=== PATIENT | female | born 1955 | race Caucasian/White ===

== ENCOUNTER 2018-01-14 16:05 | Inpatient (IN) ==
[2018-01-14] MEDS ORDERED: Naloxone 0.4 MG/ML INJ IVP PRN (18:40)
[2018-01-14] MEDS ORDERED: 0.9 % Sodium Chloride 1,000 ML IVC SCH (18:45)
[2018-01-14 19:11] LABS: Basophils % 0.2 %; Hematocrit 30.9 % (35.3-44.9); Hemoglobin 10.5 g/dL (11.5-15.4); Immature Granulocytes % 0.3 % (0-4); Lymphocytes # 1.6 K/mcL (0.6-4.6); Lymphocytes % 16.4 %; Mean Corpuscular Hemoglobin 31.3 pg (28.0-33.3); Mean Corpuscular Volume 92.2 fL (83.0-100.0); Mean Platelet Volume 9.6 fL (9.4-12.4); Monocytes # 0.3 K/mcL (0.0-1.3); Monocytes % 2.6 %; Platelet Count 226 K/mcL (140-400); Red Blood Count 3.35 M/mcL (3.82-4.97); Red Cell Distribution Width 12.2 % (11.5-14.5); Segmented Neutrophils % 80.5 %
[2018-01-14 19:18] LABS: INR 1.1; Prothrombin Time 12.3 Seconds (9.4-12.1)
[2018-01-14 19:20] LABS: Activated Partial Thrombo Time 29.3 Seconds (26.0-36.0)
[2018-01-14] MEDS: Pantoprazole 40 MG in 0.9 % Sodium Chloride Mini Bag 100 ML IVC SCH ×2 (19:25→21:55)
[2018-01-14 19:30] LABS: Alanine Aminotransferase 16 Units/L (7-52); Albumin 4.4 g/dL (3.5-5.7); Albumin/Globulin Ratio 2.4 (1.1-2.2); Alkaline Phosphatase 49 Units/L (34-104); Aspartate Amino Transferase 14 Units/L (13-39); BUN/Creatinine Ratio 57 (6-26); Bilirubin,Total 0.6 mg/dL (0.3-1.0); Blood Urea Nitrogen 45 mg/dL (8-23); Calcium 9.3 mg/dL (8.6-10.3); Carbon Dioxide 23 mEq/L (23-29); Chloride 106 mEq/L (98-107); Globulin 1.8 g/dL (2.4-3.5); Glucose 133 mg/dL (70-105); Osmolality,Calculated 297 (280-300); Potassium 4.4 mEq/L (3.5-5.1); Sodium 137 mEq/L (136-145); Total Protein 6.2 g/dL (6.4-8.9); eGFR For Non-African Americans > 60 (> 60)
[2018-01-14 21:34] LABS: Hematocrit 28.1 % (35.3-44.9); Hemoglobin 9.7 g/dL (11.5-15.4)
--- NOTE | 2018-01-14 22:05 | Internal Med History&Physical ---
Date of Encounter: 01/14/18 Time of Encounter: 20:30 Internal Medicine - H&P: HPI Chief complaint: coffee ground emesis; melena Admitted From: Hospital to Hospital Transfer Plans for Post Hospital Care: Home History of present illness: Ms. Mejia is a 62 year old female who presents in transfer from [facility] ER in [place]. She presented there with complaints of coffee-ground emesis and melena, both of which started early this morning. She had several bouts of emesis and melena since this morning. She had an NG tube placed there with significant amount of coffee-ground material. Since then, she has had minimal output via the NG tube. She was noted to be anemic and needed further workup and care and not available at [facility]. Therefore, she was transferred here to [facility]. Upon arrival to [place], I saw the patient on the floor shortly after her arrival. Patient and her confirmed above history. Of note, she had a recent left heart catheterization roughly 3 weeks ago. She was noted to have single- vessel coronary artery disease. However, she did not require any angioplasty or stent placement. She has been on aspirin and Plavix since then. She does not use or abuse any other NSAIDs. She takes acetaminophen on a daily basis. However, she does not use ibuprofen, Aleve, Naprosyn, or other NSAIDs. She does not drink excessive caffeine other than soda pop, roughly 4 cans per day. She does not smoke or abuse alcohol. She has never had GI bleeding or ulcer disease before. She has never had colonoscopy or upper endoscopy. I reviewed her old records and old labs. Of note, her hemoglobin on 12/21/2017 was 13.8. Hemoglobin upon arrival here was 10.5. Repeat hemoglobin now at 9 PM is 9.7. Part of her hemoglobin drop, I believe, is dilutional from IVF. She has therefore had roughly 4 g hemoglobin drop since early December. We are going to hold her aspirin and Plavix, keep her on protonic drip, and proceed with endoscopy -- likely tomorrow. I called and spoke with Dr. Bell, and he is aware of the patient. He intends to proceed with endoscopy tomorrow, sooner if necessary. I asked her nurse to place a second IV, and we will monitor hemodynamics closely. Additionally, we will monitor hemoglobin and transfuse as necessary. I explained the plan to patient and her at length, and they are in agreement and appreciation of the plan. Past Med Surg Social Fam HX - Past Medical History Attestation: Yes The following information was validated with the patient. Source: patient, old records reviewed, obtained from family, other ([facility] records) Medical history: coronary artery disease (50% stenosis mid LAD) Psychiatric history: no psych history - Past Surgical History Additional surgical history: CATARACTS FREMOVED BILAT, CHILD DELIVERIES. TUBAL LIGATION - Social History Smoking Status: Never smoker Smokeless Tobacco Status: No Alcohol use: none Drug use: none Current living situation: Home, With Family Activity Level: Independent ambulation Recent Out of Country Travel Within the Last 8 Weeks: No - Family History Mother Living Status: Hx Family GI Disorders: No Father Living Status: Hx Family GI Disorders: No Internal Medicine - H&P: Meds Aspirin [Lo-Dose Aspirin EC] 81 mg PO DAILY 12/23/17 [History] Cyanocobalamin (Vitamin B-12) [Vitamin B-12] 500 mcg PO DAILY 12/23/17 [History] Multivitamin/Iron/Folic Acid [Centrum Complete Multivit Tab] 1 each PO 12/23/17 [History] Vit A/C/E AC/Znox/Cupric Oxide [Eye Vitamin-Minerals Tablet] 1 each PO BID 12/23/17 [History] Allergy/AdvReac Type Severity Reaction Status Date / Time prednisone Allergy Rash Verified 12/23/17 11:50 - Constitutional Constitutional: no chills, no fever(s), no night sweats - EENT Eyes: no blurry vision, no change in vision Ears: no ear pain, no tinnitus Nose, mouth and throat: no nasal congestion, no sinus pressure, no sore throat - Cardiovascular Cardiovascular ROS IM: no chest pain, no dyspnea, no dyspnea on exertion, no orthopnea, no palpitations, no syncope - Respiratory Respiratory: no cough, no hemoptysis, no chest congestion, no excessive phlegm production, no change in phlegm color - Gastrointestinal Gastrointestinal: coffee ground emesis, melena, nausea, no abdominal pain, no diarrhea, no heartburn, no hematemesis, no hematochezia - Genitourinary Genitourinary: no dysuria, no flank pain, no hematuria - Musculoskeletal Musculoskeletal ROS IM: arthralgias, no back pain - Integumentary Integumentary IM: no rash, no jaundice - Neurological Neurological ROS: dizziness, no focal weakness, no frequent falls, no headache(s), no weakness - Psychiatric Psychiatric: no anxiety, no depression - Endocrine Endocrine IM: no cold intolerance, no heat intolerance, no polydipsia, no polyuria - Hematologic/Lymphatic Hematologic/Lymphatic: no easy bruising - Allergic/Immunologic Allergic/Immunologic: no wheezing, no GI upset with certain foods - Constitutional Vitals: Temp Pulse Resp BP Pulse Ox 98.0 F 96 16 108/63 99 01/14/18 19:42 01/14/18 19:42 01/14/18 19:42 01/14/18 19:42 01/14/18 19:42 General appearance: Present: cooperative, A&O X 3, pleasant, no acute distress, answers questions appropriately Exam: NG tube in place - Head Head exam: Present: atraumatic, normal inspection - Eye Eye exam: Present: EOMI, PERRL. Absent: scleral icterus Pupils: Present: normal accommodation - ENT ENT exam: Present: mucous membranes dry, normal exam, normal oropharynx - Neck Neck exam general surgery: Present: full ROM, supple. Absent: tenderness, nuchal rigidity, thyromegaly - Respiratory Respiratory exam: Present: CTAB. Absent: chest wall tenderness, rales, respiratory distress, rhonchi, wheezes - Cardiovascular Cardiovascular exam: Present: RRR, +S1, +S2. Absent: diastolic murmur, systolic murmur - GI/Abdominal GI/Abdominal exam: Present: normal bowel sounds, soft. Absent: guarding, hepatomegaly, mass, rebound, splenomegaly, tenderness - Extremities Exam Extremities exam: Present: full ROM, normal capillary refill, warm, radial pulses palpable and symmetrical. Absent: calf tenderness, joint swelling, pedal edema, tenderness - Back Exam Back exam: Present: normal inspection. Absent: CVA tenderness (L), CVA tenderness (R) - Neurological Exam Neurological exam: Present: alert, CN II-XII intact, oriented X3, no focal deficits, strengths equal and symetr throughout - Psychiatric Psychiatric exam: Present: normal affect, normal mood - Skin Skin exam: Present: dry, intact, warm. Absent: petechiae, rash Internal Med - H&P Results - Labs CBC & Chem 7: 01/14/18 21:08 01/14/18 19:00 Labs: Short CBC 01/14/18 01/14/18 Range/Units 19:00 21:08 WBC 9.9 (4.3-11.1) K/mcL Hgb 10.5 L 9.7 L (11.5-15.4) g/dL Hct 30.9 L 28.1 L (35.3-44.9) % Plt Count 226 (140-400) K/mcL Neutrophils # 8.0 (1.6-8.9) K/mcL BMP 01/14/18 19:00 Sodium 137 Potassium 4.4 Chloride 106 Carbon Dioxide 23 BUN 45 H Creatinine 0.79 Glucose 133 H Calcium 9.3 Liver Function 01/14/18 Range/Units 19:00 Total Bilirubin 0.6 (0.3-1.0) mg/dL AST 14 (13-39) Units/L ALT 16 (7-52) Units/L Alkaline Phosphatase 49 (34-104) Units/L Albumin 4.4 (3.5-5.7) g/dL Pertinent Labs from [facility]: Hemoglobin 10.7 Hematocrit 31.3 Platelets 229 PT 12.7 INR 1.1 PTT 28.2 - Assessment and plan (1) Acute blood loss anemia Current Visit: Yes Status: Acute Assessment and plan: 1. Will trend hemoglobin Q6H and transfuse as necessary. 2. Continue MIV fluids. 3. I requested 2nd IV placement per RN. 4. Monitor on telemetry and hemodynamically. 5. If necessary, will move to ICU for closer monitoring. However, presently, she appears stable on step-down unit. Discussed with patient, family, and RN. (2) UGI bleed Current Visit: Yes Status: Acute Assessment and plan: 1. Will keep patient on Protonix drip. 2. Remove NG tube as there is very little output now and also to prevent further gastric irritation. 3. NPO after midnight for EGD likely tomorrow. 4. Dr. Bell consulted and case discussed with him. 5. Hold ASA and Plavix for now. (3) Nonobstructive atherosclerosis of coronary artery Current Visit: Yes Status: Chronic Assessment and plan: 1. Patient with no signs or symptoms of angina. 2. LHC revealed 50% non-obstructive mid LAD lesion. 3. Primary treatment would be PRBC transfusion in the setting of GI bleed and angina. No symptoms presently. Will monitor closely. (4) DVT prophylaxis Current Visit: Yes Status: Acute Assessment and plan: 1 EPCD's.
[2018-01-15] MEDS: Pantoprazole 40 MG in 0.9 % Sodium Chloride Mini Bag 100 ML IVC SCH ×2 (02:07→07:34)
[2018-01-15] MEDS ORDERED: 0.9 % Sodium Chloride 1,000 ML IVC SCH (02:15)
[2018-01-15 04:33] LABS: Basophils % 0.3 %; Eosinophils # 0.1 K/mcL (0.0-0.6); Eosinophils % 0.7 %; Hematocrit 25.1 % (35.3-44.9); Hemoglobin 8.6 g/dL (11.5-15.4); Immature Granulocytes % 0.2 % (0-4); Lymphocytes # 2.9 K/mcL (0.6-4.6); Lymphocytes % 32.5 %; Mean Corpuscular HGB Conc 34.3 g/dL (31.6-35.5); Mean Corpuscular Hemoglobin 31.9 pg (28.0-33.3); Mean Platelet Volume 9.9 fL (9.4-12.4); Monocytes # 0.6 K/mcL (0.0-1.3); Monocytes % 7.1 %; Neutrophils # 5.3 K/mcL (1.6-8.9); Platelet Count 188 K/mcL (140-400); Red Cell Distribution Width 12.5 % (11.5-14.5); Segmented Neutrophils % 59.2 %
[2018-01-15 04:50] LABS: BUN/Creatinine Ratio 39 (6-26); Blood Urea Nitrogen 34 mg/dL (8-23); Calcium 8.5 mg/dL (8.6-10.3); Carbon Dioxide 25 mEq/L (23-29); Chloride 110 mEq/L (98-107); Glucose 90 mg/dL (70-105); Osmolality,Calculated 297 (280-300); Potassium 4.1 mEq/L (3.5-5.1); Sodium 140 mEq/L (136-145); eGFR For Non-African Americans > 60 (> 60)
--- NOTE | 2018-01-15 07:42 | General Surgery Consult Note ---
Date of Encounter: 01/15/18 Time of Encounter: 07:30 Assessment and Plan (1) UGI bleed Current Visit: Yes Status: Acute The patient has a personal history of hematemesis. We will plan to stop her aspirin and Plavix as well as perform urgent upper endoscopy to try and identify a bleeding source. History of Present Illness Consult date: 01/15/18 Reason for consult: other (Hematemesis) History of present illness: The patient is a 62-year-old female who recently underwent heart catheterization. She had noncritical disease and coronary artery stents were placed. She was placed on Plavix and aspirin. She had vomiting that demonstrated hematemesis. There was a drop in her hemoglobin and she now presents for urgent upper endoscopy to evaluate the esophagus stomach and duodenum for gastrointestinal bleeding source. I answered the patient's questions and she will be kept nothing by mouth for upper endoscopy Past Med Surg Social Fam HX - Past Medical History Medical history: coronary artery disease (50% stenosis mid LAD) Psychiatric history: no psych history - Past Surgical History Additional surgical history: CATARACTS FREMOVED BILAT, CHILD DELIVERIES. TUBAL LIGATION - Social History Smoking Status: Never smoker Smokeless Tobacco Status: No Alcohol use: none Drug use: none - Family History Mother Living Status: Hx Family GI Disorders: No Father Living Status: Hx Family GI Disorders: No Medications and Allergies Aspirin [Lo-Dose Aspirin EC] 81 mg PO DAILY 12/23/17 [History] Cyanocobalamin (Vitamin B-12) [Vitamin B-12] 500 mcg PO DAILY 12/23/17 [History] Multivitamin/Iron/Folic Acid [Centrum Complete Multivit Tab] 1 each PO 12/23/17 [History] Vit A/C/E AC/Znox/Cupric Oxide [Eye Vitamin-Minerals Tablet] 1 each PO BID 12/23/17 [History] Allergy/AdvReac Type Severity Reaction Status Date / Time prednisone Allergy Rash Verified 12/23/17 11:50 Review of Systems All systems PM: The remainder of the systems were reviewed and are negative General Surgery Exam Initial Vital Signs Temp Pulse Resp BP Pulse Ox 98.0 F 96 16 108/63 99 01/14/18 19:42 01/14/18 19:42 01/14/18 19:42 01/14/18 19:42 11/03/18 19:42 - General physical appearance well developed, well nourished, no distress - Respiratory normal expansion, normal respiratory effort, clear to percussion, clear to auscultation - Cardiovascular Cardiovascular exam: Present: RRR, no murmurs/rubs/gallops - Abdomen Abdomen general surgery: Present: bowel sounds present, soft, non tender - Neurologic Present: CN 2-12 grossly intact, normal coordination, normal sensation - Psychiatric Psychiatric general surgery: Present: appropriate, oriented to person, oriented to place, oriented to time, speech is normal, memory intact Exam Initial Vital Signs Temp Pulse Resp BP Pulse Ox 98.0 F 96 16 108/63 99 01/14/18 19:42 01/14/18 19:42 01/14/18 19:42 01/14/18 19:42 01/14/18 19:42 - General physical appearance well developed, well nourished, no distress, moderate distress, severe distress - Respiratory normal expansion, normal respiratory effort, clear to percussion, clear to auscultation - Abdomen Abdomen: non tender, bowel sounds (present), surgical scars (none), masses (none) Hernia: none - Neurologic CN 2-12 grossly intact, normal coordination, normal sensation - Psychiatric oriented to time, oriented to person, oriented to place, speech is normal, me karel intact Results - Labs 01/15/18 04:02 01/15/18 04:02 Abnormal lab results RBC 2.70 M/mcL (3.82-4.97) L 01/15/18 04:02 Hgb 8.6 g/dL (11.5-15.4) L 01/15/18 04:02 Hct 25.1 % (35.3-44.9) L 01/15/18 04:02 PT 12.3 Seconds (9.4-12.1) H 01/14/18 19:00 Chloride 110 mEq/L (98-107) H 01/15/18 04:02 BUN 34 mg/dL (8-23) H 01/15/18 04:02 BUN/Creatinine Ratio 39 (6-26) H 01/15/18 04:02 Calcium 8.5 mg/dL (8.6-10.3) L 01/15/18 04:02 Serum Total Protein 6.2 g/dL (6.4-8.9) L 01/14/18 19:00 Globulin 1.8 g/dL (2.4-3.5) L 01/14/18 19:00 Albumin/Globulin Ratio 2.4 (1.1-2.2) H 01/14/18 19:00 Diabetes panel 01/14/18 01/15/18 Range/Units 19:00 04:02 Sodium 137 140 (136-145) mEq/L Potassium 4.4 4.1 (3.5-5.1) mEq/L Chloride 106 110 H (98-107) mEq/L Carbon Dioxide 23 25 (23-29) mEq/L BUN 45 H 34 H (8-23) mg/dL Creatinine 0.79 0.87 (0.60-1.20) mg/dL Glucose 133 H 90 (70-105) mg/dL Calcium 9.3 8.5 L (8.6-10.3) mg/dL AST 14 (13-39) Units/L ALT 16 (7-52) Units/L Alkaline Phosphatase 49 (34-104) Units/L Albumin 4.4 (3.5-5.7) g/dL Calcium panel 01/14/18 01/15/18 Range/Units 19:00 04:02 Calcium 9.3 8.5 L (8.6-10.3) mg/dL Albumin 4.4 (3.5-5.7) g/dL Pituitary panel 01/14/18 01/15/18 Range/Units 19:00 04:02 Sodium 137 140 (136-145) mEq/L Potassium 4.4 4.1 (3.5-5.1) mEq/L Chloride 106 110 H (98-107) mEq/L Carbon Dioxide 23 25 (23-29) mEq/L BUN 45 H 34 H (8-23) mg/dL Creatinine 0.79 0.87 (0.60-1.20) mg/dL Glucose 133 H 90 (70-105) mg/dL Calcium 9.3 8.5 L (8.6-10.3) mg/dL Adrenal panel 01/14/18 01/15/18 Range/Units 19:00 04:02 Sodium 137 140 (136-145) mEq/L Potassium 4.4 4.1 (3.5-5.1) mEq/L Chloride 106 110 H (98-107) mEq/L Carbon Dioxide 23 25 (23-29) mEq/L BUN 45 H 34 H (8-23) mg/dL Creatinine 0.79 0.87 (0.60-1.20) mg/dL Glucose 133 H 90 (70-105) mg/dL Calcium 9.3 8.5 L (8.6-10.3) mg/dL Total Bilirubin 0.6 (0.3-1.0) mg/dL AST 14 (13-39) Units/L ALT 16 (7-52) Units/L Alkaline Phosphatase 49 (34-104) Units/L Albumin 4.4 (3.5-5.7) g/dL All other labs normal. - Imaging CT scan - abdomen: image reviewed Consult Discharge Plan - Plan Referrals: Jackeline Edwards CNP [Primary Care Provider] -
[2018-01-15 08:18] LABS: Basophils % 0.3 %; Eosinophils # 0.1 K/mcL (0.0-0.6); Eosinophils % 0.8 %; Hemoglobin 8.1 g/dL (11.5-15.4); Immature Granulocytes % 0.1 % (0-4); Lymphocytes # 2.3 K/mcL (0.6-4.6); Lymphocytes % 31.4 %; Mean Corpuscular HGB Conc 33.8 g/dL (31.6-35.5); Mean Corpuscular Hemoglobin 31.2 pg (28.0-33.3); Mean Corpuscular Volume 92.3 fL (83.0-100.0); Mean Platelet Volume 10.1 fL (9.4-12.4); Monocytes # 0.4 K/mcL (0.0-1.3); Monocytes % 5.4 %; Neutrophils # 4.5 K/mcL (1.6-8.9); Platelet Count 181 K/mcL (140-400); Red Cell Distribution Width 12.7 % (11.5-14.5)
[2018-01-15] MEDS ORDERED: D5% in Water 1,000 ML IVC PRN (08:46)
[2018-01-15] MEDS ORDERED: Dextrose Gel 15 GM/37.5 ML TUBE PO PRN ×2 (08:46)
[2018-01-15] MEDS ORDERED: *HR* Dextrose 50 % in Water (Syg) 50 ML SYRINGE IVP PRN (08:46)
[2018-01-15] MEDS ORDERED: D5% in 0.9% NACL 1,000 ML IVC SCH (09:00)
[2018-01-15] MEDS ORDERED: Propofol 500 MG/50 ML INFUS..BTL ONE (09:01)
[2018-01-15] MEDS ORDERED: Lidocaine -MPF 2% 2 ML VIAL ONE (09:02)
--- NOTE | 2018-01-15 09:06 | Anesthesia Evaluation PreOp ---
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 Any Significant HX Other Medical History: Denies Any Significant HX Anesthesia History: No Prior Anesthetic Complications : No Alcohol Use: none Drug use: none Medications and Allergies Aspirin [Lo-Dose Aspirin EC] 81 mg PO DAILY 12/23/17 [History] Cyanocobalamin (Vitamin B-12) [Vitamin B-12] 500 mcg PO DAILY 12/23/17 [History] Multivitamin/Iron/Folic Acid [Centrum Complete Multivit Tab] 1 each PO 12/23/17 [History] Vit A/C/E AC/Znox/Cupric Oxide [Eye Vitamin-Minerals Tablet] 1 each PO BID 12/23/17 [History] Allergy/AdvReac Type Severity Reaction Status Date / Time prednisone Allergy Rash Verified 12/23/17 11:50 - Meds/Allergy Pre-op Review Medications Reviewed: Yes Allergies Reviewed: Yes Beta Blockers on Current Med List: No Anesthesia Results - Labs 01/15/18 08:06 01/15/18 04:02 Laboratory Tests 01/14/18 01/15/18 01/15/18 19:00 04:02 08:06 Hgb 8.1 L Hct 24.0 L Plt Count 181 PT 12.3 H INR 1.1 APTT 29.3 Sodium 140 Potassium 4.1 BUN 34 H Creatinine 0.87 - Imaging EKG: report reviewed (SR) Additional studies: ECHO EF 40%, moderate diastolic dysfunction Anesthesia Exam Vital Signs/O2 Sat/Glucose, Most Current Temp Pulse Resp BP Pulse Ox 01/15/18 06:50 98.1 F 69 16 102/53 97 Height: 5'4 Weight: 138 lbs NPO (# of Hours): MN Pain Scale: 0 - HEENT Pupil (Motor): Pupils equal, EOMI Mallampati: II Teeth: Edentulous (no upper dentition) Oral Opening: Less than or equal to 3 - TECHNICAL INSTRUCTOR COURSE DEVELOPER LOC: Oriented TECHNICAL INSTRUCTOR COURSE DEVELOPER Motor: Normal RUE, Normal LUE, Normal RLE, Normal LLE, Normal Face TECHNICAL INSTRUCTOR COURSE DEVELOPER Sensory: Normal: RUE, LUE, RLE, LLE, Face - Cardiac Rhythm: Regular Murmur: None JVD: No Carotid Bruit: No - Pulmonary Breath Sounds: bilateral Clear Respiratory Effort: Symmetrical Anesthesia Assess/Plan ASA Score: 3 (CAD Mod Cardiomyopathy) Level of consciousness: Cooperative Anesthetic Plan: MAC Autologous Blood: No Monitoring Plan: Standard Monitors Recovery Plan: Other (Discussed MAC, agrees to proceed)
--- NOTE | 2018-01-15 09:53 | Anesthesia Evaluation Post Op ---
Date of Encounter: 01/15/18 Time of Encounter: 09:45 - Vital Signs Vital Signs: Vital Signs/O2 Sat/Glucose, Most Current Temp Pulse Resp BP Pulse Ox 01/15/18 09:15 74 18 106/61 97 01/15/18 06:50 98.1 F 69 16 102/53 97 - Lungs Lungs: Clear Ascult./Percussion - Airway Airway: Non-obstructed - Cardiovascular Regular Rate - Mental Status Mental Status: Alert & Oriented, Answers Appropriately - Pain Pain Scale: 0 - Nausea Vomiting Nausea Vomiting: Not Present - Hydration Hydration: Ice chips - Discharge PostOp Status: Transfer Patient to floor
--- NOTE | 2018-01-15 10:08 | Internal Med Progress Note ---
Hospitalist Progress Note - Encounter Date of Encounter: 01/15/18 Time of Encounter: 10:03 - Subjective Interval History: Patient seen and evaluated at bedside, she reports that she is feeling better today, denies dizziness or lightheadedness. denies chest or abdominal pain. denies nausea or vomiting episodes. - Exam Vitals: Temp Pulse Resp BP Pulse Ox 98.1 F 74 18 106/61 97 01/15/18 06:50 01/15/18 09:15 01/15/18 09:15 01/15/18 09:15 01/15/18 09:15 Exam: General: Alert and oriented x4. in no acute distress. Skin: Normal color, no rash, no lesions. HEENT: EOM, pupils equal, round and reactive. Cardiovascular: RRR, Normal S1 & S2, no rubs, murmurs or gallops. Lungs: CTA bilaterally, no wheezes or crackles. Abdomen: Soft, non-tender, no rigidity. NABS in 4 all quadrant. Extremities: No deformity, no edema or tenderness, no joint swelling or clubbing . Neurological: Normal cognition and motor skills. Rest of the physical exam is non contributory - Assessment and Plan (1) UGI bleed Current Visit: Yes Status: Acute Assessment and Plan: s/p EGD: Acute gastritis with hemorrhage. Multiple oozing duodenal ulcers Plan on Pantoprazole 40mg/IV BID NPO accu-checks Q6HRs Lispro medium dose sliding scale D5NS@75mls/hr to avoid hypoglycemia Serial CBC Q6HRs sulcrafate 1mg/PO TID will consider transfusing if Hb<7, Hct <23 or patient becomes symptomatic. Ondanseron 4mg/IV Q4HR PRN for nausea&vomiting (2) Acute blood loss anemia Current Visit: Yes Status: Acute Assessment and Plan: Plan of care as above. (3) Nonobstructive atherosclerosis of coronary artery Current Visit: Yes Status: Chronic Assessment and Plan: Aspirin and Plavix has been held due to GI bleed. DVT Prophylaxis: No chemical DVT prophylaxis due to GI bleeding Mechanical DVT prophylaxis with intermittent pneumatic compression. - Summary of Assessment and Plan Summary of Assessment and Plan: Patient to remain in the hospital to continue monitoring serial CBC due to GI bleeding. s/p EGD. - Time Spent with Patient Total time spent is greater than 50% in coordination of care (as documented) at patient's floor/unit and/or counseling patient: Greater than 35 minutes (40) Plan of Care Discussed with: patient (and the nurse.) Internal Medicine: Result - Labs CBC & Chem 7: 01/15/18 08:06 01/15/18 04:02 Labs: Short CBC 01/14/18 01/14/18 01/15/18 Range/Units 19:00 21:08 04:02 WBC 9.9 8.9 (4.3-11.1) K/mcL Hgb 10.5 L 9.7 L 8.6 L (11.5-15.4) g/dL Hct 30.9 L 28.1 L 25.1 L (35.3-44.9) % Plt Count 226 188 (140-400) K/mcL Neutrophils # 8.0 5.3 (1.6-8.9) K/mcL 01/15/18 Range/Units 08:06 WBC 7.2 (4.3-11.1) K/mcL Hgb 8.1 L (11.5-15.4) g/dL Hct 24.0 L (35.3-44.9) % Plt Count 181 (140-400) K/mcL Neutrophils # 4.5 (1.6-8.9) K/mcL BMP 01/14/18 01/15/18 19:00 04:02 Sodium 137 140 Potassium 4.4 4.1 Chloride 106 110 H Carbon Dioxide 23 25 BUN 45 H 34 H Creatinine 0.79 0.87 Glucose 133 H 90 Calcium 9.3 8.5 L Liver Function 01/14/18 Range/Units 19:00 Total Bilirubin 0.6 (0.3-1.0) mg/dL AST 14 (13-39) Units/L ALT 16 (7-52) Units/L Alkaline Phosphatase 49 (34-104) Units/L Albumin 4.4 (3.5-5.7) g/dL - ABG Interpretation ABG results: PT/INR, D-dimer PT 12.3 Seconds (9.4-12.1) H 01/14/18 19:00 Consult Discharge Plan - Plan Referrals: Jackeline Edwards CNP [Primary Care Provider] -
[2018-01-15] MEDS: Sucralfate 1 GM TABLET PO SCH ×3 (11:45→20:00)
[2018-01-15] MEDS ORDERED: Insulin LISPRO 300 UNITS/3 ML VIAL SQ SCH (12:00)
[2018-01-15] MEDS ORDERED: Ondansetron 4 MG/2 ML VIAL IVP PRN (12:29)
[2018-01-15 12:37] LABS: Basophils % 0.2 %; Eosinophils # 0.1 K/mcL (0.0-0.6); Eosinophils % 0.6 %; Hematocrit 25.7 % (35.3-44.9); Hemoglobin 8.6 g/dL (11.5-15.4); Immature Granulocytes % 0.2 % (0-4); Lymphocytes # 2.3 K/mcL (0.6-4.6); Lymphocytes % 28.9 %; Mean Corpuscular HGB Conc 33.5 g/dL (31.6-35.5); Mean Corpuscular Hemoglobin 31.6 pg (28.0-33.3); Mean Corpuscular Volume 94.5 fL (83.0-100.0); Mean Platelet Volume 9.8 fL (9.4-12.4); Monocytes # 0.4 K/mcL (0.0-1.3); Monocytes % 4.6 %; Neutrophils # 5.3 K/mcL (1.6-8.9); Platelet Count 189 K/mcL (140-400); Red Blood Count 2.72 M/mcL (3.82-4.97); Red Cell Distribution Width 12.6 % (11.5-14.5); Segmented Neutrophils % 65.5 %
[2018-01-15] MEDS: Pantoprazole 40 MG VIAL IVP SCH (16:27)
[2018-01-15 16:48] LABS: Hematocrit 24.5 % (35.3-44.9); Hemoglobin 8.5 g/dL (11.5-15.4); Mean Corpuscular HGB Conc 34.7 g/dL (31.6-35.5); Mean Corpuscular Hemoglobin 32.2 pg (28.0-33.3); Mean Corpuscular Volume 92.8 fL (83.0-100.0); Mean Platelet Volume 9.6 fL (9.4-12.4); Platelet Count 175 K/mcL (140-400); Red Blood Count 2.64 M/mcL (3.82-4.97); Red Cell Distribution Width 12.6 % (11.5-14.5)
[2018-01-15 22:11] LABS: Basophils % 0.2 %; Eosinophils # 0.1 K/mcL (0.0-0.6); Eosinophils % 0.6 %; Hematocrit 23.5 % (35.3-44.9); Hemoglobin 7.9 g/dL (11.5-15.4); Immature Granulocytes % 0.2 % (0-4); Lymphocytes # 3.1 K/mcL (0.6-4.6); Lymphocytes % 37.9 %; Mean Corpuscular HGB Conc 33.6 g/dL (31.6-35.5); Mean Corpuscular Hemoglobin 31.5 pg (28.0-33.3); Mean Corpuscular Volume 93.6 fL (83.0-100.0); Mean Platelet Volume 10.1 fL (9.4-12.4); Monocytes # 0.4 K/mcL (0.0-1.3); Monocytes % 4.3 %; Neutrophils # 4.7 K/mcL (1.6-8.9); Platelet Count 176 K/mcL (140-400); Red Blood Count 2.51 M/mcL (3.82-4.97); Red Cell Distribution Width 12.5 % (11.5-14.5); Segmented Neutrophils % 56.8 %
[2018-01-16 00:55] LABS: Basophils % 0.3 %; Eosinophils # 0.1 K/mcL (0.0-0.6); Eosinophils % 1.1 %; Hematocrit 22.2 % (35.3-44.9); Hemoglobin 7.6 g/dL (11.5-15.4); Immature Granulocytes % 0.2 % (0-4); Lymphocytes # 3.1 K/mcL (0.6-4.6); Mean Corpuscular HGB Conc 34.2 g/dL (31.6-35.5); Mean Corpuscular Hemoglobin 31.8 pg (28.0-33.3); Mean Corpuscular Volume 92.9 fL (83.0-100.0); Mean Platelet Volume 9.8 fL (9.4-12.4); Monocytes # 0.4 K/mcL (0.0-1.3); Monocytes % 4.2 %; Neutrophils # 5.4 K/mcL (1.6-8.9); Platelet Count 162 K/mcL (140-400); Red Blood Count 2.39 M/mcL (3.82-4.97); Red Cell Distribution Width 12.4 % (11.5-14.5); Segmented Neutrophils % 60.2 %
[2018-01-16 04:29] LABS: Basophils % 0.5 %; Eosinophils # 0.1 K/mcL (0.0-0.6); Hematocrit 23.1 % (35.3-44.9); Hemoglobin 7.8 g/dL (11.5-15.4); Immature Granulocytes % 0.2 % (0-4); Lymphocytes # 2.6 K/mcL (0.6-4.6); Lymphocytes % 29.6 %; Mean Corpuscular HGB Conc 33.8 g/dL (31.6-35.5); Mean Corpuscular Hemoglobin 31.2 pg (28.0-33.3); Mean Corpuscular Volume 92.4 fL (83.0-100.0); Mean Platelet Volume 9.9 fL (9.4-12.4); Monocytes # 0.4 K/mcL (0.0-1.3); Monocytes % 4.3 %; Neutrophils # 5.6 K/mcL (1.6-8.9); Platelet Count 170 K/mcL (140-400); Red Cell Distribution Width 12.5 % (11.5-14.5); Segmented Neutrophils % 64.4 %
[2018-01-16 04:45] LABS: BUN/Creatinine Ratio 19 (6-26); Blood Urea Nitrogen 15 mg/dL (8-23); Calcium 8.6 mg/dL (8.6-10.3); Carbon Dioxide 26 mEq/L (23-29); Chloride 108 mEq/L (98-107); Glucose 89 mg/dL (70-105); Osmolality,Calculated 288 (280-300); Phosphorous 2.6 mg/dL (2.7-4.5); Potassium 3.8 mEq/L (3.5-5.1); Sodium 139 mEq/L (136-145); eGFR For Non-African Americans > 60 (> 60)
[2018-01-16] MEDS: Pantoprazole 40 MG VIAL IVP SCH (05:50)
[2018-01-16] MEDS: Sucralfate 1 GM TABLET PO SCH ×4 (07:43→21:02)
--- NOTE | 2018-01-16 10:54 | Event Note ---
<Maynor Gaspar - Last Filed: 01/16/18 10:47> Date of Encounter: 01/16/18 Time of Encounter: 10:00 Surgery was consulted for GI bleed. Patient is POD1 for EGD which showed acute gastritis and multiple oozing duodenal ulcers which were treated with argon beam coagulation and biopsied. H. pylori urease culture pending. Patient on pantoprazole and sucralfate. She is doing well today, tolerating a full liquid diet. Recommend holding plavix. Surgery will sign off now, thank you for the consult. <Trung Bell - Last Filed: 01/16/18 13:29> Date of Encounter: 01/16/18 The patient is seen and evaluated with resident. No Further clinical sign of bleeding duodenal ulcers had been coagulated. Surgery will sign off Trung Bell MD FACS
[2018-01-16] MEDS ORDERED: Iron Sucrose Complex 400 MG in 0.9 % Sodium Chloride 250 ML IVPB ONE (11:50)
[2018-01-16] MEDS ORDERED: 0.9 % Sodium Chloride 250 ML ONE (12:50)
--- NOTE | 2018-01-16 14:45 | Internal Med Progress Note ---
Hospitalist Progress Note - Encounter Date of Encounter: 01/16/18 Time of Encounter: 14:46 - Subjective Interval History: Pt denies dark stools or bright red blood per rectum. She denies epigastric pain at this time. at bedside during my encounter. She denies chest pain or SOB. - Exam Vitals: Temp Pulse Resp BP Pulse Ox 98.2 F 78 18 120/56 98 01/16/18 13:18 01/16/18 13:18 01/16/18 13:18 01/16/18 13:18 01/16/18 13:03 Exam: General: Alert and oriented x4. in no acute distress. Skin: Normal color, no rash, no lesions. HEENT: EOM, pupils equal, round and reactive. Cardiovascular: RRR, Normal S1 & S2, no rubs, murmurs or gallops. Lungs: CTA bilaterally, no wheezes or crackles. Abdomen: Soft, non-tender, no rigidity. NABS in 4 all quadrant. Extremities: No deformity, no edema or tenderness, no joint swelling or clubbing. Neurological: Normal cognition and motor skills. Rest of the physical exam is non contributory - Assessment and Plan (1) Acute blood loss anemia Current Visit: Yes Status: Acute Assessment and Plan: Pt seen by Dr. Bell's service and is s/p EGD. EGD showed multiple oozing duodenal ulcers which were treated with argon beam coagulation and biopsied. H. pylori urease culture ordered by surgery and pending. Surgery recommend holding plavix. (2) UGI bleed Current Visit: Yes Status: Acute Assessment and Plan: s/p EGD POD #1: Acute gastritis with hemorrhage. Multiple oozing duodenal ulcers s/p argon beam coagulation. Plan On Pantoprazole 40mg/IV BID will switch to PO Diet advanced as tolerated. sulcrafate 1mg/PO TID Will transfuse 1 unit to keep Hgb> 8 due to hx of heart disease. Ondanseron 4mg/IV Q4HR PRN for nausea&vomiting. Will possibly DC today if she remains stable. (3) Nonobstructive atherosclerosis of coronary artery Current Visit: Yes Status: Chronic Assessment and Plan: Was on Aspirin and Plavix at home but held due to GI bleed. Resuming ASA at DC but holding plavix per surgery recommendation. Follow p out pt with cardiology (4) Iron (Fe) deficiency anemia Current Visit: Yes Status: Acute Assessment and Plan: Pt reports history of iron deficiency anemia. She states she had to be on iron supplements during her pregnancies. Will check iron studies. Will consider iron infusion prior to DC. DVT Prophylaxis: No chemical DVT prophylaxis due to GI bleeding Mechanical DVT prophylaxis with intermittent pneumatic compression. - Summary of Assessment and Plan Summary of Assessment and Plan: Patient to remain in the hospital to continue monitoring serial CBC due to GI bleeding. s/p EGD. - Time Spent with Patient Total time spent is greater than 50% in coordination of care (as documented) at patient's floor/unit and/or counseling patient: less than 15 minutes Plan of Care Discussed with: patient Internal Medicine: Result - Labs CBC & Chem 7: 01/16/18 04:09 01/16/18 04:09 Labs: Short CBC 01/15/18 01/15/18 01/16/18 Range/Units 16:36 21:37 00:35 WBC 8.6 8.2 9.0 (4.3-11.1) K/mcL Hgb 8.5 L 7.9 L 7.6 L (11.5-15.4) g/dL Hct 24.5 L 23.5 L 22.2 L (35.3-44.9) % Plt Count 175 176 162 (140-400) K/mcL Neutrophils # 4.7 5.4 (1.6-8.9) K/mcL 01/16/18 Range/Units 04:09 WBC 8.6 (4.3-11.1) K/mcL Hgb 7.8 L (11.5-15.4) g/dL Hct 23.1 L (35.3-44.9) % Plt Count 170 (140-400) K/mcL Neutrophils # 5.6 (1.6-8.9) K/mcL BMP 01/16/18 04:09 Sodium 139 Potassium 3.8 Chloride 108 H Carbon Dioxide 26 BUN 15 Creatinine 0.81 Glucose 89 Calcium 8.6 - ABG Interpretation ABG results: PT/INR, D-dimer PT 12.3 Seconds (9.4-12.1) H 01/14/18 19:00 Consult Discharge Plan - Plan Referrals: Jackeline Edwards CNP [Primary Care Provider] -
[2018-01-16 18:26] LABS: Basophils % 0.5 %; Eosinophils # 0.1 K/mcL (0.0-0.6); Eosinophils % 1.5 %; Hematocrit 27.3 % (35.3-44.9); Hemoglobin 9.3 g/dL (11.5-15.4); Immature Granulocytes % 0.4 % (0-4); Lymphocytes # 2.2 K/mcL (0.6-4.6); Lymphocytes % 28.6 %; Mean Corpuscular HGB Conc 34.1 g/dL (31.6-35.5); Mean Corpuscular Hemoglobin 31.3 pg (28.0-33.3); Mean Corpuscular Volume 91.9 fL (83.0-100.0); Mean Platelet Volume 9.7 fL (9.4-12.4); Monocytes # 0.4 K/mcL (0.0-1.3); Monocytes % 5.6 %; Neutrophils # 4.8 K/mcL (1.6-8.9); Platelet Count 162 K/mcL (140-400); Red Blood Count 2.97 M/mcL (3.82-4.97); Red Cell Distribution Width 13.1 % (11.5-14.5); Segmented Neutrophils % 63.4 %
[2018-01-17 00:49] LABS: Ferritin 160 ng/mL (10-120)
[2018-01-17 05:01] LABS: % Iron Saturation 212 % (15-50); Iron 548 mcg/dL (50-170); Transferrin 185 mg/dL (203-362)
[2018-01-17] MEDS: Sucralfate 1 GM TABLET PO SCH ×2 (08:16→11:32)
[2018-01-17 09:29] LABS: Hematocrit 25.7 % (35.3-44.9); Hemoglobin 8.9 g/dL (11.5-15.4)
--- NOTE | 2018-01-17 11:05 | Discharge Summary ---
- NOTES TO OUTPATIENT PROVIDER Notes to Outpatient Provider: Pt was found petic ulcer at duodenum, H pylori test pending, if positive, need strat treatment. On PPI and carafate on discharge. Orders not resulted at time of discharge: Pending orders 01/15/18 09:47 Surgical Pathology [PTH] Routine Date of Encounter: 01/17/18 Time of Encounter: 09:00 - Discharge Diagnosis (1) Acute blood loss anemia Priority: Primary Status: Acute (2) UGI bleed Priority: Primary Status: Acute (3) Nonobstructive atherosclerosis of coronary artery Priority: Secondary Status: Chronic (4) Iron (Fe) deficiency anemia Priority: Secondary Status: Ruled-out Qualifiers: Qualified Code(s): D50.9 - Iron deficiency anemia, unspecified Hospital course: Ms. Mejia is a 62 year old female present to ER for coffee ground emesis and melena. Pt was considered Upper GI bleed and surgical consult was called. EGD has been done, which shows active bleeding with ulceration in duodenum area. Bleeding was stopped by argon beam coagulation and biopsied. H. pylori urease culture pending. Pt has no further emesis. H/H stable. Surgical sign off. I have seen and examined this pt today, denies dizzines, abd pain. In NAD. Vitals stable. Will d/c home with po PPI and carafate and cont f/u with surgery for biopsy and H Pylori result as outpatient. - Time Spent with Patient Total time spent providing and/or coordinating discharge services: 30 min Less than 30 minutes - Discharge Medications Prescriptions: Sucralfate [Carafate] 1 gm PO QIDAC 30 Days #120 tablet Home Medications: Cyanocobalamin (Vitamin B-12) [Vitamin B-12] 500 mcg PO DAILY 12/23/17 [History] Multivitamin/Iron/Folic Acid [Centrum Complete Multivit Tab] 1 tab PO DAILY 12/23/17 [History] Vit A/C/E AC/Znox/Cupric Oxide [Eye Vitamin-Minerals Tablet] 1 each PO BID 12/23 [History] Omeprazole [PriLOSEC] 40 mg PO DAILY 30 Days #30 cap 01/17/18 [Rx] Sucralfate [Carafate] 1 gm PO QIDAC 30 Days #120 tablet 01/17/18 [Rx] Allergies/Adverse Reactions: Allergy/AdvReac Type Severity Reaction Status Date / Time prednisone Allergy Rash Verified 01/15/18 15:55 Date of admission: 01/14/18 18:40 Primary care physician: Jackeline Edwards CNP Consults: 01/14/18 20:48 Consult to Surgery [CONS] Routine Consulting Provider: Trung Bell Reason for Consult: UGI bleed Time Notified: 20:49 Call Completed: Yes Discharging clinician: Rickey Wheat Anticipated date of discharge: 01/17/18 - Constitutional Vitals: Temp Pulse Resp BP Pulse Ox 98.7 F 87 18 118/73 96 01/17/18 07:48 01/17/18 07:48 01/17/18 07:48 01/17/18 07:48 01/17/18 07:48 General appearance: Present: cooperative, A&O X 3, pleasant, no acute distress, answers questions appropriately Exam: in NAD - Head Head exam: Present: atraumatic, normocephalic - Eye Eye exam: Present: PERRL, conjuntiva pink, sclera anicteric Pupils: Present: PERRL - Neck Neck exam general surgery: Present: supple, trachea midline. Absent: lymphadenopathy - Respiratory Respiratory exam: Present: CTAB. Absent: accessory muscle use, rales, rhonchi, wheezes - Cardiovascular Cardiovascular exam: Present: RRR, +S1, +S2. Absent: diastolic murmur, gallop, rubs, systolic murmur - GI/Abdominal GI/Abdominal exam: Present: normal bowel sounds, soft, no peritoneal signs. Absent: distended, tenderness - Extremities Exam Extremities exam: Present: warm, radial pulses palpable and symmetrical. Absent: calf tenderness, cyanotic, pedal edema - Neurological Exam Neurological exam: Present: CN II-XII intact, oriented X3, no focal deficits. Absent: pronater drift, facial droop, speech deficit - Skin Skin exam: Present: dry, intact - Patient Status Disposition: Home, Self-Care Condition: Good Functional capacity at discharge: independent ambulation Overall status at discharge: patient is back to baseline - Discharge Instructions Follow Up With: Jackeline Edwards CNP [Primary Care Provider] - Trung Bell MD [Partnered Physician] - 01/24/18 - Diet and Activity Activity: increase activity as tolerated Diet: advance to your usual diet, low fat, low cholesterol, low salt diet
[2018-01-17 11:24] VITALS: BP 121/61
== END 2018-01-17 12:23 | disposition home or self-care (01) | DRG 378 ==
LOC: 2NNU → SUATTDRO 18:40
PROVIDERS: ADMIT Internal Medicine; ATTEND Internal Medicine
PROC: ENDOEBX (2018-01-15 10:00)